=== PATIENT | female | born 1995 | race Caucasian/White ===

== ENCOUNTER 2017-02-06 06:57 | Day surgery (SDC) | payer BC, OTHER ==
[~2017-02-06] VITALS: Ht 160 cm; Wt 61.2 kg
[~2017-02-06 06:57] MED LIST: ALEVE220 M2 PO; AUGMENTIN500 MG PO; BACTRIM,SEPT1 TABLET PO; BENZONATATE100 MG PO; CETIRIZINE HCL10 M2 PO; CORTIZONE-1057 GM TP; DAILY VALUE1 EACH PO; DAILY VITAMIN1 EAC8 PO; DIFLUCAN150 MG PO; ELOCON 0.1% CRE15 GM TP; FLAGYL500 MG PO; GUAIFENESIN WI120 M1 PO; IBUPROFEN800 MG PO; LANTUS 10100 UNITS/ SC; LANTUS 3 M100 UNITS1 SC; LEVOFLOXACIN750 MG PO; LO LOESTRIN FE1 EACH PO; MELATONIN1 MG PO; MOTRIN IB200 MG PO; MULTIVITAMIN1 EAC2 PO; NASONEX17 GM BOTH NARES; NOVOLOG 10100 UNITS/ SC; NOVOLOG PE100 UNITS/ SC; NOVOLOG100 UNIT/1 SC; PROMETHAZINE HC25 M1 PO; ROBITUSSIN AC,T10 ML PO; TOPAMAX25 MG PO; ULTRAM50 MG PO; VENTOLIN HFA18 GM IH; VITAMIN D400 UNI1 PO; ZITHROMAX Z-PA250 MG PO; ZOFRAN4 MG PO; ZOLOFT50 MG PO
[2017-02-06 07:34] VITALS: BP 126/88
[2017-02-06 08:27] LABS: ANION GAP 20 MEQ/L (2-14); CHLORIDE 95 MEQ/L (99-109); POTASSIUM 3.9 MEQ/L (3.7-5.4); SAMPLE HEMOLYSIS CHECK 0; SAMPLE ICTERIC CHECK 0; SAMPLE LIPEMIA CHECK 0; SODIUM 135 MEQ/L (136-147)
[2017-02-06 08:33] LABS: GFR ESTIMATE (CALCULATED) > 59 mL/min/; GLUCOSE 333 mg/dL (70-99); UREA NITROGEN (BUN) 18 mg/dL (9-23)
[2017-02-06 10:07] LABS: POINT-OF-CARE METER ID UU14174212
[2017-02-06] MEDS ORDERED: LORCET 5-325 M1 EACH PO (11:21)
[2017-02-06 12:18] LABS: POINT-OF-CARE METER ID UU13113675
[2017-02-06 13:13] VITALS: BP 121/76
[2017-02-06 14:00] VITALS: BP 119/71
[2017-02-09 12:06] LABS: INTERNAL CONTROL VALID? YES
== END 2017-02-06 14:00 | disposition home or self-care (01) ==
LOC: SDC 06:57
PROVIDERS: Surgery
PROC: 0HBU0ZX Excision of Left Breast, Open Approach, Diagnostic (ICD-10-PCS; principal; 2017-02-06)
DX: D24.2 Benign neoplasm of left breast (principal); E10.9 Type 1 diabetes mellitus without complications; K21.9 Gastro-esophageal reflux disease without esophagitis; E78.5 Hyperlipidemia, unspecified; E88.1 Lipodystrophy, not elsewhere classified; D69.2 Other nonthrombocytopenic purpura; Z80.41 Family history of malignant neoplasm of ovary; Z82.49 Family history of ischemic heart disease and other diseases of the circulatory system; Z80.6 Family history of leukemia
CPT/HCPCS: 80048; 82948; 84703; 88305; 93005; J0131; J0690; J1100; J2250; J2405; J2765; J3010; S0020

== ENCOUNTER 2017-09-21 06:26 | Day surgery (SDC) | payer BC, OTHER ==
[~2017-09-21] VITALS: Ht 160 cm; Wt 56.0 kg
[~2017-09-21 06:26] MED LIST changes: +ALEVE220 MG PO; +LORCET 5-325 M1 EACH PO; +SKYLA1 EACH IY; +VITAMIN D31000 UNIT PO; +WOMEN MULTIVIT1 EACH PO; +ZANTAC150 MG PO
[2017-09-21 07:18] VITALS: BP 121/81
[2017-09-21] MEDS ORDERED: HYDROCODON-ACE1 EAC7 PO (10:31)
[2017-09-21 11:10] VITALS: BP 125/75
[2017-09-21 12:12] VITALS: BP 133/60
== END 2017-09-21 12:25 | disposition home or self-care (01) ==
LOC: SDC 06:26
PROVIDERS: Surgery
PROC: 0HBU0ZX Excision of Left Breast, Open Approach, Diagnostic (ICD-10-PCS; principal; 2017-09-21)
DX: D24.2 Benign neoplasm of left breast (principal); E10.9 Type 1 diabetes mellitus without complications; Z88.1 Allergy status to other antibiotic agents; Z88.8 Allergy status to other drugs, medicaments and biological substances
CPT/HCPCS: 81025; 82948; 88305; 93005; J0690; J1100; J2250; J2405; J3010; J7120; Q0175; S0020

== ENCOUNTER 2018-01-09 03:06 | Emergency (ER) | payer BC, OTHER ==
[~2018-01-09] VITALS: Ht 165.1 cm; Wt 68.0 kg
[~2018-01-09 03:06] MED LIST changes: +HYDROCODON-ACE1 EAC7 PO
[2018-01-09 06:39] VITALS: BP 132/88
[2018-01-09 22:20] LABS: CANDIDA DNA PROBE NEGATIVE; GARDNERELLA DNA PROBE NEGATIVE; TRICHOMONAS DNA PROBE NEGATIVE
== END 2018-01-09 06:40 | disposition home or self-care (01) ==
LOC: EME 03:06
PROVIDERS: Physician Assistant
DX: B37.3 Candidiasis of vulva and vagina (principal); E10.65 Type 1 diabetes mellitus with hyperglycemia; K21.9 Gastro-esophageal reflux disease without esophagitis; F41.9 Anxiety disorder, unspecified; Z79.4 Long term (current) use of insulin; Z88.1 Allergy status to other antibiotic agents; Z88.8 Allergy status to other drugs, medicaments and biological substances
CPT/HCPCS: 82948; 87480; 87510; 87660; 99281; 99284

== ENCOUNTER 2018-01-24 21:57 | Inpatient (IN) | payer BC, OTHER ==
[~2018-01-24] VITALS: Ht 165.1 cm; Wt 65.3 kg
[2018-01-24 22:39] LABS: HEMATOCRIT 41.2 % (36.0-46.0); HEMOGLOBIN 13.8 G/DL (11.9-15.5); MCH 29.5 PG (29.0-34.0); MCHC 33.5 G/DL (30.0-36.0); PLATELET COUNT 383 K/uL (156-360); RBC DIS.WIDTH-CV 11.9 % (11.8-14.6); RBC DIS.WIDTH-SD 37.9 % (39-53); RED BLOOD COUNT 4.68 M/uL (3.80-5.20); WHITE BLOOD COUNT 5.9 K/uL (4.1-10.2)
[2018-01-24 22:53] LABS: ALBUMIN 4.2 g/dL (3.2-4.8); CHLORIDE 102 mEq/L (99-109); POTASSIUM 3.4 mEq/L (3.7-5.4); SODIUM 141 mEq/L (136-147)
[2018-01-24] MEDS ORDERED: LASIX40 MG PO (22:53)
[2018-01-24 22:54] LABS: MAGNESIUM 2.1 mg/dL (1.3-2.7)
[2018-01-24] MEDS ORDERED: LOPRESSOR25 MG PO (22:54)
[2018-01-24 22:55] LABS: GLUCOSE 153 mg/dL (70-99); TOTAL PROTEIN 7.7 g/dL (6.4-8.3)
[2018-01-24] MEDS ORDERED: FLUVOXAMINE MA100 M1 PO (22:55)
[2018-01-24 22:57] LABS: TOTAL BILIRUBIN 0.3 mg/dL (0.0-1.0)
[2018-01-24 22:59] LABS: ALKALINE PHOSPHATASE 139 IU/L (3-129); CREATININE 0.8 mg/dL (0.6-1.3); GFR ESTIMATE (CALCULATED) > 59 mL/min/; PHOSPHORUS 2.9 mg/dL (2.5-4.9)
[2018-01-24 23:00] LABS: UREA NITROGEN (BUN) 13 mg/dL (9-23)
[2018-01-24 23:01] LABS: AST (GOT) 30 IU/L (2-34)
[2018-01-24 23:02] LABS: ALT (GPT) 31 IU/L (3-49)
[2018-01-24 23:08] LABS: TROP-I INTERPRETATION NEGATIVE; TROPONIN-I < 0.01 ng/mL (0.0-0.30)
[2018-01-24 23:09] LABS: QUANTITATIVE HCG < 4.0 MIU/ML
[2018-01-25 02:03] LABS: TROP-I INTERPRETATION NEGATIVE; TROPONIN-I < 0.01 ng/mL (0.0-0.30)
[2018-01-25 05:15] VITALS: BP 131/78
[2018-01-25 08:30] VITALS: BP 124/84
[2018-01-25 12:17] LABS: TROP-I INTERPRETATION NEGATIVE; TROPONIN-I < 0.01 ng/mL (0.0-0.30)
[2018-01-25 12:46] VITALS: BP 120/81
[2018-01-25 15:23] VITALS: BP 135/88
[2018-01-25 19:02] LABS: TROP-I INTERPRETATION NEGATIVE; TROPONIN-I 0.01 ng/mL (0.0-0.30)
[2018-01-25 20:29] VITALS: BP 134/84
[2018-01-26 00:14] VITALS: BP 132/75
[2018-01-26 06:14] LABS: CHLORIDE 103 MEQ/L (99-109); CREATININE 0.5 MG/DL (0.6-1.3); GFR ESTIMATE (CALCULATED) > 59 mL/min/; GLUCOSE 168 mg/dL (70-99); POTASSIUM 3.9 MEQ/L (3.7-5.4); SODIUM 139 MEQ/L (136-147); UREA NITROGEN (BUN) 12 mg/dL (9-23)
[2018-01-26 12:55] VITALS: BP 145/84
[2018-01-26 16:03] VITALS: BP 128/84
[2018-01-26 20:13] VITALS: BP 142/80
[2018-01-26 23:57] VITALS: BP 130/86
[2018-01-27 03:10] VITALS: BP 132/78
[2018-01-27 08:15] VITALS: BP 103/68
[2018-01-27 11:15] VITALS: BP 112/69
[2018-01-27 16:14] VITALS: BP 127/79
[2018-01-27 19:23] VITALS: BP 131/77
[2018-01-28 04:20] VITALS: BP 127/76
[2018-01-28 08:13] VITALS: BP 122/74
[2018-01-28 13:16] LABS: HEMATOCRIT 42.4 % (36.0-46.0); MCV 90.8 FL (83-99); PLATELET COUNT 353 K/uL (156-360); RBC DIS.WIDTH-CV 11.9 % (11.8-14.6); RBC DIS.WIDTH-SD 39.8 % (39-53); RED BLOOD COUNT 4.67 M/uL (3.80-5.20); WHITE BLOOD COUNT 4.9 K/uL (4.1-10.2)
[2018-01-28 14:28] LABS: ALBUMIN 4.2 G/DL (3.2-4.8); ALKALINE PHOSPHATASE 117 IU/L (3-129); ALT (GPT) 19 IU/L (3-49); AST (GOT) 28 IU/L (2-34); CREATININE 0.8 MG/DL (0.6-1.3); GFR ESTIMATE (CALCULATED) > 59 mL/min/; TOTAL BILIRUBIN 0.5 MG/DL (0.0-1.0); UREA NITROGEN (BUN) 17 mg/dL (9-23)
[2018-01-28 14:37] LABS: CHLORIDE 91 MEQ/L (99-109); GLUCOSE 699 mg/dL (70-99); SODIUM 130 MEQ/L (136-147)
[2018-01-28 16:27] VITALS: BP 124/81
[2018-01-28 19:19] VITALS: BP 136/83
[2018-01-28 19:29] LABS: CARBON DIOXIDE (BICARBONATE) 29.4 MEQ/L (20-31)
[2018-01-28 19:51] LABS: ALBUMIN 4.3 G/DL (3.2-4.8); ALKALINE PHOSPHATASE 121 IU/L (3-129); ALT (GPT) 16 IU/L (3-49); AST (GOT) 27 IU/L (2-34); CHLORIDE 96 MEQ/L (99-109); CREATININE 0.7 MG/DL (0.6-1.3); GFR ESTIMATE (CALCULATED) > 59 mL/min/; MAGNESIUM 1.8 mg/dl (1.3-2.7); SODIUM 134 MEQ/L (136-147); TOTAL PROTEIN 7.5 G/DL (6.4-8.3); UREA NITROGEN (BUN) 15 mg/dL (9-23)
[2018-01-28 19:52] LABS: GLUCOSE 344 mg/dL (70-99); TOTAL BILIRUBIN 0.3 MG/DL (0.0-1.0)
[2018-01-29 00:04] VITALS: BP 129/85
[2018-01-29 04:44] VITALS: BP 124/79
[2018-01-29 08:32] VITALS: BP 131/85
[2018-01-29 09:53] LABS: CHLORIDE 104 MEQ/L (99-109); CREATININE 0.6 MG/DL (0.6-1.3); GFR ESTIMATE (CALCULATED) > 59 mL/min/; POTASSIUM 4.5 MEQ/L (3.7-5.4); SODIUM 140 MEQ/L (136-147); UREA NITROGEN (BUN) 14 mg/dL (9-23)
[2018-01-29 09:54] LABS: GLUCOSE 131 mg/dL (70-99)
[2018-01-29] MEDS ORDERED: LOPRESSOR25 MG PO (11:01)
== END 2018-01-29 12:05 | disposition home or self-care (01) | DRG 310 ==
LOC: EME 21:57 → 4SOUTH 01-25 02:52 → EDOF 01-25 02:52 → ENRESERV 01-25 02:56 → 4SOUTH 01-25 05:01
PROVIDERS: Emergency Medicine; Hospitalist; Physician Assistant Medical
DX: I47.1 Supraventricular tachycardia (principal); E10.65 Type 1 diabetes mellitus with hyperglycemia; E87.6 Hypokalemia; F41.9 Anxiety disorder, unspecified; K21.9 Gastro-esophageal reflux disease without esophagitis; R07.9 Chest pain, unspecified; D69.6 Thrombocytopenia, unspecified; G40.909 Epilepsy, unspecified, not intractable, without status epilepticus; Z79.899 Other long term (current) drug therapy
CPT/HCPCS: 71045; 71275; 78452; 80048; 80053; 81003; 82010; 82803; 82948; 83735; 84100; 84484; 84702; 85027; 85379; 93005; 93017; 93306; 99281; 99285; A9500; G0378; J1650; J1815; J1885; J2270; J2785; J7030; S0028